=== PATIENT | female | born 1990 | race Hispanic/Latino ===

== ENCOUNTER 2018-01-08 15:41 | Inpatient (IN) | payer OTHER ==
[2018-01-08] MEDS ORDERED: METHYLERGONOVINE 0.2MG/ML AMP IM PRN (15:49)
[2018-01-08] MEDS ORDERED: Ringers Lactate 1,000 ML IV PRN (15:49)
[2018-01-08] MEDS ORDERED: PROMETHAZINE 25 MG/ML VIAL IM PRN (15:49)
[2018-01-08] MEDS ORDERED: CARBOPROST TROME 250 MCG/ML IM PRN (15:49)
[2018-01-08] MEDS ORDERED: Ringers Lactate 1,000 ML IV SCH (16:00)
[2018-01-08] MEDS ORDERED: OXYTOCIN/LR 20 UNIT/1,000 ML BAG IV SCH ×2 (16:00→19:00)
[2018-01-08 16:12] LABS: RPR Titer ND
[2018-01-08 16:16] LABS: Absolute Lymphocytes (CBC) 1.5 K/uL (0.7-4.9); Absolute Monocytes 0.9 K/uL (0.1-1.3); Absolute Neutrophil 19.3 K/uL (1.8-8.0); Basophils % 0.1 % (0-1.3); Hematocrit 24.5 % (36.0-45.0); Lymphocytes % 6.9 % (15.3-44.8); MCH 23.4 pg (27.0-35.0); MCV 77.5 fL (80-100); MPV 8.4 fL (7.6-11.3); Monocytes % 4.2 % (3.3-12.3); RBC Red Blood Cell Count 3.16 M/uL (3.86-4.86)
[2018-01-08 16:23] VITALS: BMI 21.7
[2018-01-08] MEDS ORDERED: LIDOCAINE 1% 20 ML MDV ONE (16:33)
[2018-01-08] MEDS ORDERED: PENICILLIN 2.5 MU in NA CHLORIDE 0.9% 100 ML IV SCH (17:00)
[2018-01-08] MEDS ORDERED: INFLUENZA VACCINE (for 3y+) 0.5 ML DOSE IMVAC ONE (17:00)
[2018-01-08 17:28] LABS: Blood Morphology Comment NOTED (NOT SEEN); Platelet Estimate ADEQ; Polychromasia SLIGHT
[2018-01-08 17:30] LABS: Anisocytosis 3+; Teardrop Cell FEW
[2018-01-08] MEDS ORDERED: DOCUSATE NA/SENNA CONC 1 TAB PO PRN (18:32)
[2018-01-08] MEDS ORDERED: IBUPROFEN 200 MG TAB PO PRN (18:32)
[2018-01-08] MEDS ORDERED: BISACODYL 10 MG RECTAL SUPP RECT PRN (18:32)
[2018-01-08] MEDS ORDERED: DIPHENHYDRAMINE 25 MG TAB/CAP PO PRN (18:32)
[2018-01-08] MEDS ORDERED: ACETAMINOPHEN 500 MG TAB PO PRN (18:32)
[2018-01-08] MEDS ORDERED: Oxycodone HCl/Acetaminophen 1 TAB TAB PO PRN ×2 (18:32)
--- NOTE | 2018-01-08 21:01 | PREOPHP ---
Date of Admission: 01/08/2018 This is a 27-year-old 4, para 2, 1 miscarriage, both of her other pregnancies ended at 37 wee ks. By her best estimates, the patient is 31 weeks 6 days, came out to Labor and Delivery yesterday with complaint of contractions, was not really dilated, but had a thin lower uterine segment, was giv en Celestone at that time and reported back this morning for a second Celestone, had positive f ibronectin, was given Procardia as the patient had tachycardia and could not be given terbutaline. S he states that basically she has silent labors. Indeed, she was seen in my office, was noted to be 6 -7 cm, was sent straight to Labor and Delivery, started on penicillin prophylaxis, is now 7-8 cm, rup ture of membranes, anticipate delivery relatively soon, Pediatrics and [facility] notified. KAE/FREDI Voice ID: [id number]
--- NOTE | 2018-01-08 21:25 | PN ---
Telephone conversation with Dr. Arteaga. He agrees the patient is to far dilated now plus with ruptur ed membranes for transfer. She is a good 7 to 8, 0 station. She has had her first dose of penicilli n. She has had 2 doses of Celestone. We will get the baby stabilized and he is trying to get the ne onatal transfer team to arrange for a transfer of the baby instead of maternal transfer. Th is will be a transfer, full discussion. KAE/FREDI Voice ID: [id number] Report ID: [id number]
[2018-01-08 23:11] LABS: RPR (Rapid Plasma Reagin) NON-REACT (NON-REACT)
--- NOTE | 2018-01-09 00:10 | OP ---
Surgeon: Jimmy Russo MD [address], 27-year-old, 4, para 2, 31 weeks 6 days. Seen in Labor and Delivery yesterd ay. Positive fibronectin. Given Celestone and one Procardia. Contractions stomped. Came to my office this morning. She was 6-7 cm, bulging membranes. Sent to Labor and Delivery. She was giv en penicillin 5 million units. At 8.5 cm rupture of membranes, clear fluid. The patient progressed rapidly to complete. Second stage of 10 minutes or less. Spontaneous vaginal delivery of a 3-pound, 15-ounce male infant, Apgars [address] Lamas, Pediatric, in attendance plus [facility] nsf team- unit available. Baby now in the nursery. Schultze delivery of the placenta, whi ch was noted to be cloudy. No unusual odor, mildly hypotonic, 0.2 mg of Methergine IM given as well as IV drip Pitocin. The patient tolerated all procedures well. No analgesics given. Final Diagnoses: Intrauterine gestation, 31 weeks 6 days, premature labor. Penicillin prophylaxis. Mild uterine hypertonicity. Transfer as soon as transportation arrives and baby is ready. Seems to be quite stable at this point. NBC/MODL Voice ID: [id number] Report ID: [id number]
[2018-01-09] MEDS ORDERED: Ringers Lactate 1,000 ML IV ONE (04:25)
[2018-01-09 07:52] LABS: Absolute Lymphocytes (CBC) 2.4 K/uL (0.7-4.9); Absolute Monocytes 1.4 K/uL (0.1-1.3); Absolute Neutrophil 16.5 K/uL (1.8-8.0); Basophils % 0.1 % (0-1.3); Eosinophils % 0.1 % (0-4.4); Hematocrit 20.3 % (36.0-45.0); MCH 24.2 pg (27.0-35.0); MCV 76.1 fL (80-100); MPV 8.1 fL (7.6-11.3); Monocytes % 6.8 % (3.3-12.3); RBC Red Blood Cell Count 2.67 M/uL (3.86-4.86)
--- NOTE | 2018-01-09 08:24 | DS ---
A 27-year-old 4, para 2, 1 miscarriage, at 31 weeks 6 days, advanced premature labor. Came i nto my office and noted to be 6 to 7 cm bulging membranes. Had received 2 doses of Celestone prior t o this point. Sent to labor and delivery where she subsequently delivered a 3 pounds 15 ounce male i nfant, Apgars 8 and 9. No episiotomy. No lacerations. Mild uterine hypotonus, 0.2 mg of Methergine IM. Estimated blood loss 400 cc. Placenta sent for pathology as she had somewhat cloudy membranes. The patient is remained afebrile. White count on admission noted as around 21,000. We have a repe at CBC this morning. She was given 5 million units of penicillin during the labor, transfer to the [facility] was accomplished Dr. Lamas was the cover machine operator at the time of delivery. The patient has done quite well. If her CBC is still elevated, we will send her home with antibiotics for a few days. It is coming down. She is significantly anemic, has really not been following instructions a bout taking iron. She will start taking iron pills at this point twice a day, to see me in the offic e in 6 weeks to report any temperature elevation of 100 degrees or greater, severe pain, heavy bleedi ng, or any other type of abnormalities. She requests no analgesics on dismissal. She is offered Tdap . Final Diagnoses: 1.Premature labor at 31 weeks 6 days. 2.Vaginal delivery. KAE/FREDI Voice ID: [id number] Report ID: [id number]
[2018-01-09 09:23] VITALS: BP 93/65; TEMP 97.6
[2018-01-09] MEDS ORDERED: Tdap (Diph,Pertuss(Acell),Tet Vac) 0.5 ML SYR IMVAC ONE (09:38)
[2018-01-09] MEDS ORDERED: INFLUENZA VACCINE (for 3y+) 0.5 ML DOSE IMVAC ONE (10:04)
[2018-01-10 20:29] LABS: HBsAG Nonreactive (Nonreactive)
== END 2018-01-09 10:40 | disposition home or self-care (01) | DRG 775 ==
LOC: 2ND-WC 15:41
PROVIDERS: ADMIT Specialist; ATTEND Specialist
PROC: 10E0XZZ Delivery of Products of Conception, External Approach (ICD-10-PCS; principal; 2018-01-08)
DX: O60.14X0 Preterm labor third trimester with preterm delivery third trimester, not applicable or unspecified (principal); O62.2 Other uterine inertia; O99.02 Anemia complicating childbirth; Z3A.31 31 weeks gestation of pregnancy; Z37.0 Single live birth; Z23 Encounter for immunization
CPT/HCPCS: 36415; 85025; 86592; 86901; 87340; 88305; 88307; 90715; J2210; J2590; Q2035